=== PATIENT | male | born 1985 | race Caucasian/White ===

== ENCOUNTER 2021-02-12 05:29 | Emergency (ER) | payer OTHER ==
[2021-02-12 05:42] VITALS: BP 106/67; PULSE 107; RESP 18; TEMP 98.6
[2021-02-12] MEDS ORDERED: PENICILLIN VK 500MG STARTER 4 TAB BTL PO STA (07:17)
[2021-02-12] MEDS ORDERED: IBUPROFEN 600 MG STARTER PACK 4 TAB BTL PO STA (07:17)
--- NOTE | 2021-02-12 07:28 | ED ---
General Adult HPI - General Chief complaint: Dental/Oral Stated complaint: Dental Pain Time Seen by Provider: 02/12/21 07:01 Source: patient, RN notes reviewed Mode of arrival: ambulatory Limitations: no limitations - History of Present Illness Initial comments: 35-year-old male presents to the emergency room for dental pain. Patient has had left lower dental pain for the past 2 days. Patient states he always comes here and get penicillin and it goes away within the first 2 doses. Patient denies fevers. Patient does not have a dentist. States that he needs all of his teeth pulled. Patient denies fevers, neck stiffness, trismus.Patient has no other complaints at this time including shortness of breath, chest pain, abdominal pain, nausea or vomiting, headache, or visual changes. - Related Data Previous Rx's Medication Instructions Recorded Ibuprofen [Motrin] 600 mg PO Q6HR PRN #20 tab 02/12/21 Penicillin V Potassium [Pen Vee K] 500 mg PO Q6H 10 Days #40 tablet 02/12/21 Allergies Allergy/AdvReac Type Severity Reaction Status Date / Time root beer AdvReac Unknown Uncoded 02/12/21 05:42 Review of Systems ROS Statement: Those systems with pertinent positive or pertinent negative responses have been documented in the HPI. ROS Other: All systems not noted in ROS Statement are negative. Past Medical History Past Medical History: No Reported History History of Any Multi-Drug Resistant Organisms: None Reported Past Surgical History: Orthopedic Surgery Past Psychological History: No Psychological Hx Reported Smoking Status: Current every day smoker Past Alcohol Use History: None Reported Past Drug Use History: Marijuana General Exam Limitations: no limitations General appearance: alert, in no apparent distress Head exam: Present: atraumatic Eye exam: Present: normal appearance, PERRL, EOMI. Absent: scleral icterus, conjunctival injection ENT exam: Present: mucous membranes moist. Absent: normal oropharynx (Patient has mild edema left lower jaw. No palpable or identifiable dental abscess along the gumline. No sublingual edema.) Neck exam: Present: normal inspection, full ROM. Absent: tenderness Respiratory exam: Present: normal lung sounds bilaterally. Absent: respiratory distress, wheezes, rales Cardiovascular Exam: Present: regular rate, normal rhythm, normal heart sounds GI/Abdominal exam: Present: soft, normal bowel sounds. Absent: distended, tenderness Neurological exam: Present: alert Course Vital Signs 02/12/21 05:40 Temperature 98.6 F Pulse Rate 107 H Respiratory 18 Rate Blood Pressure 106/67 O2 Sat by Pulse 99 Oximetry Medical Decision Making - Medical Decision Making Started on penicillin. No abscess identified. Referred to dentist. He will return here for any worsening symptoms. Disposition Clinical Impression: Dental infection Disposition: HOME SELF-CARE Condition: Good Instructions (If sedation given, give patient instructions): Toothache (ED) Additional Instructions: Please follow up with primary care in 1-2 days. Return to the ER for any worsening symptoms. [facility] [address] [facility] [address] (existing clients only) New clients: [phone] 1st consult: $50 (includes XRs) Usually 30% less than private dentist for visits after. [employer] Have to pay $50 for Xrays and rest is covered [phone] Prescriptions: Ibuprofen [Motrin] 600 mg PO Q6HR PRN #20 tab PRN Reason: Pain Penicillin V Potassium [Pen Vee K] 500 mg PO Q6H 10 Days #40 tablet Is patient prescribed a controlled substance at d/c from ED?: No Referrals: Pb Higuera MD [REFERRING] - 1-2 days Time of Disposition: 07:18
== END 2021-02-12 07:33 | disposition home or self-care (01) ==
LOC: EC 05:29
DX: K04.7 Periapical abscess without sinus (principal); F17.200 Nicotine dependence, unspecified, uncomplicated; F12.90 Cannabis use, unspecified, uncomplicated
CPT/HCPCS: 99282

== ENCOUNTER 2021-08-30 05:50 | Day surgery (SDC) | payer OTHER ==
[2021-08-30] MEDS ORDERED: ONDANSETRON 4 MG/2 ML VIAL IVP ONE (06:08)
[2021-08-30] MEDS ORDERED: DEXAMETHASONE SOD PHOSPHATE 4 MG/ML 1 ML VIAL IV ONE (06:08)
[2021-08-30] MEDS ORDERED: MIDAZOLAM 2 MG/2 ML VIAL IV PRN (06:08)
[2021-08-30] MEDS ORDERED: SCOPOLAMINE 1 MG/72 HR PATCH TRANSDERM ONE (06:08)
[2021-08-30 06:24] VITALS: TEMP 97.2
[2021-08-30] MEDS: LACTATED RINGERS 1,000 ML IV SCH ×2 (06:45→07:28)
[2021-08-30] MEDS ORDERED: SUCCINYLCHOLINE CHLORIDE 100 MG/5 ML SYR IV ONE (07:25)
[2021-08-30] MEDS ORDERED: LIDOCAINE 2% INJ 20 MG/ML (2 ML VIAL) ONE (07:25)
[2021-08-30] MEDS ORDERED: KETAMINE 10 MG/ML 20 ML VIAL ONE (07:25)
[2021-08-30] MEDS ORDERED: fentaNYL (PF) 50 MCG/ML 2 ML AMP ONE (07:25)
[2021-08-30] MEDS ORDERED: PROPOFOL 10 MG/ML 20 ML VIAL IV ONE (07:25)
[2021-08-30] MEDS ORDERED: DEXAMETHASONE SOD PHOSPHATE 4 MG/ML 1 ML VIAL ONE (07:25)
[2021-08-30] MEDS ORDERED: ROPIVACAINE 5 MG/ML 30 ML VIAL ONE (07:25)
[2021-08-30] MEDS ORDERED: PHENYLEPHRINE-0.9% NACL SYG 1,000 MCG/10 ML SYRINGE ONE (07:25)
--- NOTE | 2021-08-30 07:52 | P.ANPRN ---
Procedure Note - Anesthesia - Nerve Block Performed Right Adductor Canal Single Time Out Performed: Yes Date of Procedure: 08/30/21 Procedure Start Time: 06:55 Procedure Stop Time: 07:04 Location of Patient: PreOp Indication: Acute Post-Operative Pain, Requested by Surgeon Sedation Type: Sedate with meaningful contact maintained Preparation: Sterile Prep, Sterile Dressing Position: Supine Catheter: None Needle Types: Pajunk Needle Gauge: 20 Ultrasound used to visualize needle placement: Yes Ultrasound used to observe medication spread: Yes Injectate: 0.5% Ropivacaine (see comment for volume) (15 ml + decadron 4 mg) Blood Aspirated: No Pain Paresthesia on Injection Noted: No Resistance on Injection: Normal Image Stored and Saved: Yes Events: Uneventful and Well Tolerated Right Popliteal Single Time Out Performed: Yes Date of Procedure: 08/30/21 Procedure Start Time: 07:05 Procedure Stop Time: 07:11 Location of Patient: PreOp Indication: Acute Post-Operative Pain, Requested by Surgeon Sedation Type: Sedate with meaningful contact maintained Preparation: Sterile Prep, Sterile Dressing Position: Left Lateral Catheter: None Needle Types: Pajunk Needle Gauge: 20 Ultrasound used to visualize needle placement: Yes Ultrasound used to observe medication spread: Yes Injectate: 0.5% Ropivacaine (see comment for volume) (15 ml + decadron 4 mg) Blood Aspirated: No Pain Paresthesia on Injection Noted: No Resistance on Injection: Normal Image Stored and Saved: Yes Events: Uneventful and Well Tolerated
[2021-08-30] MEDS ORDERED: LACTATED RINGERS 1,000 ML IV ONE (08:33)
--- NOTE | 2021-08-30 09:21 | XR ---
Fluoroscopy INDICATION: Pain FINDINGS: Fluoroscopy time: Not recorded Images obtained: 1. IMPRESSIONS: 1. Documentation of fluoroscopy.
--- NOTE | 2021-08-30 09:28 | FL ---
Fluoroscopy INDICATION: Pain FINDINGS: Fluoroscopy time: 57 seconds. Images obtained: 0. IMPRESSIONS: 1. Documentation of fluoroscopy.
--- NOTE | 2021-08-30 09:59 | P.OP ---
Date of Procedure: 08/30/21 Preoperative Diagnosis: 1. Displaced right bimalleolar ankle fracture 2. Disruption of right syndesmosis Postoperative Diagnosis: 1. Same 2. Same Procedure(s) Performed: 1. Open reduction with internal fixation right bimalleolar ankle fracture 2. Open repair syndesmosis right ankle Implants: Arthrex precontoured titanium lateral malleolar plate with 3.5 mm locking screws, 3.5 mm nonlocking screws, and 3.0 locking screws Arthrex tight rope Arthrex 4.0 mm cannulated screws 2 Anesthesia: ROBBINA Surgeon: Vance Joe Estimated Blood Loss (ml): 10 Pathology: none sent Condition: stable Disposition: PACU Description of Procedure: Prior to the patient being brought to the operating room, anesthesia administered nerve block on the right lower extremity. The patient was brought into the operating room and placed on the table supine position. Timeout was taken to confirm correct patient identifiers, correct site of surgery, and correct procedure. When all staff in the room were in agreement with the timeout, the patient was induced and placed under general anesthesia. A well- padded tourniquet was placed on the right thigh and a bump underneath the right hip to internally rotate the right leg. The right leg was then prepped and draped in the usual manner. The leg was exsanguinated and the tourniquet inflated to 250 mmHg. Attention was directed over the lateral aspect of the ankle where a linear incision was made over the lateral malleolus. Incision was deepened down through the subcutaneous layer careful to identify, avoid, and retract any neurovascular structures and cauterize any bleeding vessels. A full-thickness incision was made down to the lateral malleolus and the soft tissue reflected to expose the fracture. A curette was used to remove any soft tissue and hematoma between the fracture segments. And then the wound is irrigated with sterile saline. Bone reduction clamps were then used to rotate the fracture bringing back out to length and realigned. Fluoroscopy confirmed that the fracture was anatomically reduced. 3.5 mm cortical screw was then inserted from anterior to posterior and perpendicular to the fracture. The screw provided good compression across the fracture line. An Arthrex precontoured lateral malleolar plate was and positioned over the lateral malleolus. The plate did require some bending to conform to the contour of the lateral malleolus. Once that was completed the plate was temporarily fixated and adjusted under fluoroscopy until it was correctly aligned. The 3.5 locking screw was then placed through the second to most proximal hole in the plate. 3.5 mm nonlocking cortical screw was then inserted at the midportion of the plate so that would bring it into better contact with the lateral malleolus. A second 3.5 mm locking screw was placed in the most proximal hole in the plate. At that distal portion of the plate a combination of 3.0 cortical locking and nonlocking screws were placed. Drilling was done under direct fluoroscopic visualization so as not to penetrate the lateral gutter. Once all screws were in and position fluoroscopy was used to make sure that the overlap alignment of the fracture was acceptable and that there were no distal screws in the lateral gutter. Once fixation was in place fluoroscopic imaging showed anatomic alignment and restored length of the lateral malleolus. Then attention was directed to the medial aspect ankle were curved incision was made over the medial malleolus. It was deepened down to the subcutaneous tissue careful to identify, avoid, and retract any neurovascular structures and cauterize any bleeding vessels. The periosteum was incised and reflected anteriorly and posteriorly to expose the fracture. All soft tissue and hematoma were evacuated from between the fracture segments. Then the wound is irrigated with sterile saline. Bone reduction clamp was then used to place the fracture into its proper alignment. And then under fluoroscopic visualization guidewires for 4.0 cannulated screws were inserted at the tip of medial malleolus and angled superiorly and posteriorly so that they were perpendicular to the fracture line. Fluoroscopy showed that the wire placement was correct both on AP and lateral views. Overdrill it was completed just to the fracture line. Then 4.0 partially threaded cannulated screws were inserted across the guidewires and advanced until the heads contacted the medial malleolus and compressed the fracture line. Fluoroscopic imaging confirmed proper placement of the screws both on AP and lateral views. The wires were removed. And then attention was directed back to the lateral aspect ankle for the placement of the tight rope. The hole was chosen in the plate for the placement of the tight rope was proximal to the ankle joint. The drill hole is made straight lateral to medial with anterior angulation until it exited the medial cortex of the tibia. The tight rope was inserted and the button advanced until a clear the medial cortex of the tibia. And then the button was deployed and laid flat against the cortex of the tibia. At that point the infrastructure security architect was removed and then the lateral button was tightened onto the plate with the reduction clamp in place across the syndesmosis and ankle maximally dorsiflexed. Once it was fully tightened the clamp was removed and then stress radiography was performed which showed no gapping of the medial gutter or excessive movement of the syndesmosis. With fixation complete, all wounds were thoroughly irrigated with sterile saline. Deep closure on the lateral malleolar incision was done with 2-0 Vicryl. Subcutaneous closure of both incisions was closed with 3-0 Vicryl. And skin closure done with didi An Arthrex jumpstart dressing was placed over both the medial and lateral incisions. Then a bulky dry dressings applied to the right foot and ankle. The tourniquet was released and capillary refill return to all digits on the foot. Then the patient was placed in a well-padded, well molded plaster posterior mold/sugar tong splint. Ankle was held in neutral position as the splint dried. Once the splint was dried anesthesia was reversed and the patient was taken recovery with vital signs stable.
[2021-08-30] MEDS: HYDROmorphone 0.5 MG/0.5 ML SYRINGE IVP PRN ×2 (10:00→10:15)
[2021-08-30 11:54] VITALS: BP 104/65; PULSE 72; RESP 16
== END 2021-08-30 12:04 | disposition home or self-care (01) ==
LOC: OR 05:50
PROVIDERS: ATTEND Podiatrist
DX: S82.841A Displaced bimalleolar fracture of right lower leg, initial encounter for closed fracture (principal); S93.431A Sprain of tibiofibular ligament of right ankle, initial encounter; V18.4XXA Pedal cycle driver injured in noncollision transport accident in traffic accident, initial encounter; F17.200 Nicotine dependence, unspecified, uncomplicated; Z79.1 Long term (current) use of non-steroidal anti-inflammatories (NSAID); Z79.891 Long term (current) use of opiate analgesic; Z98.890 Other specified postprocedural states
CPT/HCPCS: 64447; 64999; 76942; 73610; 27814; 27829; C1713; J2250; J1100; J0690; J2405; J3010; J2795; J2370; J0330; J2704; J1170; J2001

== ENCOUNTER 2021-12-05 23:37 | Inpatient (IN) | payer MEDICAID, OTHER ==
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
[2021-12-06 06:07] LABS: Amphetamine Screen,Urine Detected (NotDetected); Barbiturate Screen,Urine Not Detected (NotDetected); Benzodiazepines Screen,Urine Not Detected (NotDetected); Cocaine Screen,Urine Not Detected (NotDetected); Methadone Screen, Urine Not Detected (NotDetected); Opiate Screen,Urine Not Detected (NotDetected); Oxycodone Screen, Urine Not Detected (NotDetected); Phencyclidine Screen,Urine Not Detected (NotDetected); Tricyclic Antidepressant,Urine Not Detected (NotDetected); Urn Cannabinoid Scrn Not Detected (NotDetected)
[2021-12-06] MEDS ORDERED: MAGNESIUM HYDROXIDE 2,400 MG/10 ML CUP PO PRN (06:54)
[2021-12-06] MEDS ORDERED: MAG HYDROX/AL HYDROX/SIMETH 30 ML CUP PO PRN (06:54)
[2021-12-06] MEDS ORDERED: LORazepam 2 MG/ML INJ IM PRN (06:57)
[2021-12-06] MEDS ORDERED: HALOPERIDOL LACTATE 5 MG/ML 1 ML VIAL IM PRN (06:58)
[2021-12-06] MEDS ORDERED: haloperidoL 5 MG TAB PO PRN (06:58)
[2021-12-06] MEDS: NICOTINE 14MG/24HR PATCH TRANSDERM SCH ×2 (15:32→18:26)
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
[2021-12-06] MEDS: FLUoxetine HCL 20 MG CAP PO SCH (20:24)
[2021-12-07] MEDS: ACETAMINOPHEN TAB 325 MG TAB PO PRN ×2 (04:48→11:04)
[2021-12-07] MEDS: LORazepam 1 MG TAB PO PRN ×2 (04:48→11:00)
[2021-12-07] MEDS: FLUoxetine HCL 20 MG CAP PO SCH (10:59)
[2021-12-07] MEDS: NICOTINE 14MG/24HR PATCH TRANSDERM SCH (10:59)
[2021-12-07 11:26] LABS: Basophils # (A) 0.1 k/uL (0-0.2); Basophils % (A) 2 %; Eosinophils # (A) 0.2 k/uL (0-0.7); Eosinophils % (A) 3 %; HGB 15.8 gm/dL (13.0-17.5); Lymphocytes # (A) 1.1 k/uL (1.0-4.8); Lymphocytes % (A) 22 %; MCH 30.4 pg (25.0-35.0); MCHC 31.7 g/dL (31.0-37.0); Mean Platelet Volume 6.5; Monocytes # (A) 0.4 k/uL (0-1.0); Monocytes % (A) 8 %; Neutrophils # (A) 3.3 k/uL (1.3-7.7); Neutrophils % (A) 64 %; Platelet Count 346 k/uL (150-450); RBC 5.21 m/uL (4.30-5.90); RDW 13.7 % (11.5-15.5); WBC 5.2 k/uL (3.8-10.6)
[2021-12-07 11:34] LABS: ALT 16 U/L (4-49); AST 23 U/L (17-59); African American GFR (CKD) >90 (>60 ml/min/1.73 sqM); Albumin 4.1 g/dL (3.5-5.0); Alkaline Phosphatase 67 U/L (38-126); Anion Gap 9 mmol/L; Blood Urea Nitrogen 13 mg/dL (9-20); Carbon Dioxide 28 mmol/L (22-30); Chloride 100 mmol/L (98-107); Glucose 101 mg/dL (74-99); Non-African American GFR(CKD) >90 (>60 ml/min/1.73 sqM); Potassium 4.5 mmol/L (3.5-5.1); Sodium 137 mmol/L (137-145); Total Bilirubin 0.3 mg/dL (0.2-1.3); Total Protein 6.4 g/dL (6.3-8.2)
--- NOTE | 2021-12-07 16:19 | P.PN ---
Progress Note - Text Progress Note Date: 12/07/21 Interval history: Patient was seen asleep in bed and superficially cooperative on awakening. He appears withdrawn and isolates to his room, with irritable edge. He has not attended any groups so far today despite being prompted by staff, he refuses to attend. At this time, patient denies any suicidal or homicidal ideation, intent or plan. Denies any auditory or visual hallucinations. Patient denies any side effects from the medications and has been compliant with meds. Mental status exam: General Appearance: Patient appears to be stated age, poor hygiene and grooming, long messy hair. Behavior: Patient is laying without any agitated behavior, remains guarded and withdrawn. Speech: Patient's speech is fluent and non-pressured. Mood/Affect: Patient reports their mood is "fine", affect is incongruent and constricted. Suicidality/Homicidality: Patient denies having any homicidal ideation intent or plan. He denies any suicidal ideations, intent or plan. Perceptions: Patient denies any visual hallucinations and denies any auditory hallucinations. Though content/process: There is no evidence of any delusional thought content and thought process is linear and goal-directed. Memory and concentration: AOX3, grossly intact for the purposes of this session. Can spell "WORLD" backwards Judgment and insight: poor Assessment/Plan: Continue with current diagnosis. Patient continues to meet criteria for inpatient psychiatric admission for symptom stabilization and safety. Patient will be maintained on current psychotropic medication regimen. Continue Prozac 20 mg daily for now, with plan to increase to 40 mg daily as tolerated for depression/anxiety. Consider starting Trileptal for mood lability/agitation. Monitor for medication compliance and for any psychotropic medication side effects. Will continue to monitor ongoing response to treatment. Encouraged participation in milieu.
[2021-12-07 20:06] LABS: Appearance,Urine Cloudy (Clear); Bilirubin,Urine Negative (Negative); Blood,Urine Negative (Negative); Calcium Oxalate Crystals,Urine Occasional /hpf; Color,Urine Yellow; Glucose,Urine (UA) Negative (Negative); Hyaline Casts,Urine 1 /lpf (0-2); Ketones,Urine Negative (Negative); Leukocyte Esterase,Urine Negative (Negative); Mucus,Urine Occasional /hpf; Nitrite,Urine Negative (Negative); PH, Urine 6.5 (5.0-8.0); Protein,Urine Negative (Negative); RBC,Urine 1 /hpf (0-5); Specific Gravity,Urine 1.024 (1.001-1.035); Urobilinogen,Urine <2.0 mg/dL (<2.0); WBC,Urine 1 /hpf (0-5)
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
[2021-12-08 06:53] VITALS: RESP 16
[2021-12-08] MEDS: NICOTINE 14MG/24HR PATCH TRANSDERM SCH (08:51)
[2021-12-08] MEDS: FLUoxetine HCL 20 MG CAP PO SCH (08:51)
[2021-12-08] MEDS: ACETAMINOPHEN TAB 325 MG TAB PO PRN (08:52)
[2021-12-08] MEDS: LORazepam 1 MG TAB PO PRN ×2 (14:06→20:33)
--- NOTE | 2021-12-08 15:04 | P.PN ---
Progress Note - Text Progress Note Date: 12/08/21 Interval history: Patient was laying in bed resting and is superficially cooperative on awakening. He continues to appear withdrawn, isolates to his room, with irritable edge and has been refusing to attend groups despite prompting from staff. He states he just wants to go home. He reports poor sleep last night, but was reminded he was in bed asleep most of the day. We reviewed sleep hygiene. At this time, patient denies any suicidal or homicidal ideation, intent or plan. Denies any auditory or visual hallucinations. Patient denies any side effects from the medications and has been compliant with meds. Mental status exam: General Appearance: Patient appears to be stated age, fair hygiene and grooming, long hair. Behavior: Patient is laying without any agitated behavior, remains guarded and withdrawn. Speech: Patient's speech is fluent and non-pressured. Mood/Affect: Patient reports their mood is "fine", affect is incongruent and constricted. Suicidality/Homicidality: Patient denies having any homicidal ideation intent or plan. He denies any suicidal ideation, intent or plan. Perceptions: Patient denies any visual hallucinations and denies any auditory hallucinations. Though content/process: There is no evidence of any delusional thought content and thought process is linear and goal-directed. Memory and concentration: AOX3, grossly intact for the purposes of this session. Judgment and insight: Poor Assessment/Plan: Continue with current diagnosis. Patient continues to meet criteria for inpatient psychiatric admission for symptom stabilization and safety. Increase Prozac to 40 mg daily for depression/anxiety. Consider adding Trileptal for mood lability/agitation. Reviewed sleep hygiene. Encouraged participation in milieu. Monitor for medication compliance and for any psychotropic medication side effects. Will continue to monitor ongoing response to treatment.
[2021-12-09] MEDS: NICOTINE 14MG/24HR PATCH TRANSDERM SCH (08:57)
[2021-12-09] MEDS ORDERED: FLUoxetine HCL 20 MG CAP PO SCH (09:00)
[2021-12-09] MEDS: LORazepam 1 MG TAB PO PRN ×2 (12:11→18:33)
[2021-12-10 06:33] VITALS: TEMP 97.7
[2021-12-10] MEDS: NICOTINE 14MG/24HR PATCH TRANSDERM SCH (09:21)
--- NOTE | 2021-12-10 11:05 | P.PN ---
Progress Note - Text Progress Note Date: 12/10/21 S&O: Patient was seen in rounds. He is calm and cooperative. No behavioral issues in the unit. However he had an argument with his mother over the phone last evening. He is not planning on staying with his mother and is planning on staying with his friend who is a occupational health and safety manager. He is not on any medications. His condition was discussed in the treatment team meeting and it was agreed to discharge him with outpatient counseling. Patient was counseled about this and he agreed with the plan. Plan: Discharge to live with this friend with outpatient counseling.
--- NOTE | 2021-12-10 11:18 | P.DS ---
Providers Date of admission: 12/06/21 06:53 Expected date of discharge: 12/10/21 Attending physician: Sae Black MD Consults: 12/06/21 06:54 Consult Physician Routine Consulting Provider: Matthew Chen Consult Reason/Comments: H&P Do you want consulting provider notified?: Yes Primary care physician: [facility] Course: Patient had her psychiatric H&P done by on 12/06/2021 and physical examination on 12/07/[address] Uribe. He was started on Prozac by Dr. Alegre and it was increased to 40 mg a day. Patient said he did not see any difference while on Prozac as expected. However he did not provide any history suggestive of depression to be treated with antidepressants. His problems appear to be related to his disagreements and interim personal relationship problem with his mother and grandmother. He was counseled about it and he agreed to stop taking Prozac. He did not have any behavioral issues except for an argument over the phone with his mother on 12/09/2021 evening. He has agreed to get outpatient counseling to manage his anger issues and coping skills. This was discussed with the treatment team members and it was agreed to discharge him. Patient Condition at Discharge: Fair Plan - Discharge Summary Discharge Rx Participant: No New Discharge Prescriptions: No Action Naproxen [Naprosyn] 500 mg PO Q12HR PRN PRN Reason: Pain Discharge Medication List Naproxen [Naprosyn] 500 mg PO Q12HR PRN 08/28/21 [History] Follow up Appointment(s)/Referral(s): Constance Salmeron [Primary Care Provider] - 1-2 days Activity/Diet/Wound Care/Special Instructions: Avoid the use of street drugs and alcohol. Take all prescriptions as prescribed. When you are in need of refills on your medications, please contact your medical provider and/or outpatient psychiatrist to have this done. Please go to scheduled outpatient appointment for aftercare treatment. If symptoms return or become worse, call the crisis line at and/or go to the nearest emergency room for evaluation. Discharge Disposition: HOME SELF-CARE
[2021-12-10] MEDS: LORazepam 1 MG TAB PO PRN (11:28)
[2021-12-10 11:29] VITALS: BP 110/67; PULSE 108
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
== END 2021-12-10 12:31 | disposition home or self-care (01) | DRG 881 ==
LOC: EC 23:37 → 3MHU 12-06 06:53
PROVIDERS: ADMIT Psychiatry & Neurology Psychiatry; ATTEND Psychiatry & Neurology Psychiatry
DX: F32.A Depression, unspecified (principal); R45.851 Suicidal ideations; F12.90 Cannabis use, unspecified, uncomplicated; F15.90 Other stimulant use, unspecified, uncomplicated; F17.210 Nicotine dependence, cigarettes, uncomplicated; F41.9 Anxiety disorder, unspecified; F43.25 Adjustment disorder with mixed disturbance of emotions and conduct; Z79.899 Other long term (current) drug therapy; Z20.822 Contact with and (suspected) exposure to COVID-19
CPT/HCPCS: 80053; 80306; 81001; 82075; 83036; 84443; 85025; 87635; 99285

== ENCOUNTER 2021-12-25 12:27 | Day surgery (SDC) | payer OTHER ==
[2021-12-23 12:13] VITALS: BMI 24.7
[~2021-12-25 12:27] MED LIST: DEXAMETHASONE SOD PHOSPHATE 4 MG/ML 1 ML VIAL IV ONE; HYDROmorphone 0.5 MG/0.5 ML SYRINGE IVP PRN; LACTATED RINGERS 1,000 ML IV SCH; LIDOCAINE 1% (10MG/ML) FOR IV START INTRADERMA PRN; MIDAZOLAM 2 MG/2 ML VIAL IV PRN; ONDANSETRON 4 MG/2 ML VIAL IVP ONE
[2021-12-25 13:11] VITALS: TEMP 98.6
[2021-12-25] MEDS ORDERED: PHENYLEPHRINE-0.9% NACL SYG 1,000 MCG/10 ML SYRINGE ONE (13:29)
[2021-12-25] MEDS ORDERED: PROPOFOL 10 MG/ML 20 ML VIAL IV ONE (13:29)
[2021-12-25] MEDS ORDERED: MIDAZOLAM 2 MG/2 ML VIAL ONE (13:29)
[2021-12-25] MEDS ORDERED: LIDOCAINE 2% INJ 20 MG/ML (2 ML VIAL) ONE (13:29)
[2021-12-25] MEDS ORDERED: fentaNYL (PF) 50 MCG/ML 2 ML AMP ONE (13:29)
[2021-12-25] MEDS ORDERED: BUPIVACAINE (PF) 0.25% 30 ML VIAL SQ ONE (13:40)
[2021-12-25] MEDS ORDERED: LACTATED RINGERS 1,000 ML IV ONE (14:52)
--- NOTE | 2021-12-25 15:18 | FL ---
EXAMINATION TYPE: FL guidance operating room, XR ankle limited RT DATE OF EXAM: 12/25/2021 CLINICAL HISTORY: Right ankle fracture TECHNIQUE: Fluoroscopy. Intraoperative limited views right ankle. COMPARISON: Prior ankle x-ray study August 30, 2021. FINDINGS: Fluoroscopic guidance was provided during open reduction internal fixation procedure perfo rmed by Dr. Joe. A total of 30 seconds of fluoroscopic time was utilized during the procedure and 7 spot images was acquired. Intraoperative images obtained show interval removal of 2 fixating screws at level of the medial mall eolus with placement of a medial fixating plate having 3 more proximal fixating screws and one distal obliquely oriented fixating screw. Lateral fixating plate through the lateral malleolus and distal f ibula remains present. IMPRESSION: As Above.
--- NOTE | 2021-12-25 15:22 | P.OP ---
Date of Procedure: 12/25/21 Preoperative Diagnosis: Nonunion medial malleolar fracture right ankle Postoperative Diagnosis: Same Procedure(s) Performed: open reduction with internal fixation right medial malleolar fracture Implants: Arthrex medial malleolar hook plate with associated screws Arthrex ArthroCell Anesthesia: NAN Surgeon: Vance Joe Estimated Blood Loss (ml): 5 Pathology: none sent Condition: stable Disposition: PACU Description of Procedure: The patient was brought into the operating room and placed on table supine position. Timeout was taken to confirm correct patient identifiers, correct laterality of surgery, and correct procedure. Once the staff in the room were in agreement with the timeout, the patient was induced and placed under general anesthesia. A well-padded tourniquet was placed on the right calf. Then 19 mL of 0.25% Marcaine was injected as an infiltrative block along the medial malleolus proximal to the surgical site. The right leg was then prepped and draped usual manner. The leg was exsanguinated and the tourniquet inflated to 250 motors mercury. Attention was directed over the medial malleolus where the previous surgical incision was used as the outline for the incision. The incision was deepened down to the subcutaneous tissue, careful to identify, avoid, and retract any neurovascular structures and cauterize any bleeding vessels. Sharp dissection was continued down to the periosteum which was then reflected medially and laterally. Small incision was made at the superficial fibers of the deltoid and medial malleolus to expose the 2 previous screws. Bone was going around the screws that was removed. Both screws were engaged reversed and removed intact and without complication. Next the nonunion site was identified and incised. The nonunion site was opened and utilizing accommodation of curettes and osteotomes, the fibrous tissue between the fracture fragments was completely removed down to expose bleeding bone. There is then thoroughly irrigated with antibiotic saline. Arthrex are for cell, whic h was being mixed on the back table, was then placed between the fracture fragments. Reduction clamp was used to completely reduced fracture. Fluoroscopy showed that the fracture was completely reduced. Then an Arthrex medial malleolar hook plate was positioned over the medial malleolus and then impacted into the tip of the medial malleolus. Fluoroscopy confirmed proper placement of the plate both on AP, oblique and lateral views. Next a 4.0 cancellous screw was inserted and the slot between the hooks and advanced into the tibia. Screw allow the fracture remained reduced and further compress the plate out of the bone. Next a 3.5 mm nonlocking screw was inserted the compression slot on the proximal aspect of the plate. The drilling was done acentrically and then the screw advanced which further compress the plate. The next was the most proximal screw which was another nonlocking screw to further press the plate against the tibia. The last screw was laced centrally between the 2 nonlocking screws and the screw was a locking screw. Final fluoroscopic imaging showed anatomic reduction of the fracture. Hardware is properly positioned both on AP, oblique, and lateral views. The wound is thoroughly irrigated with anatomic saline. Subcu closure done with 3-0 Monocryl. Skin closure done with didi. An Arthrex jumpstart dressing was placed over the incision. A bulky dry dressings applied to the right ankle. Tourniquet was released capillary refill return to all digits on the right foot. Patient is a placed in a well-padded, well molded plaster posterior mold/sugar tong splint. Ankle was held in neutral position as splint dried. The patient tolerated above procedure and anesthesia well which recovery with vital signs stable.
[2021-12-25] MEDS ORDERED: HYDROcodone/APAP 7.5-325MG 1 EACH TAB PO ONE (15:56)
[2021-12-25] MEDS ORDERED: HYDROcodone/APAP 7.5-325MG 1 EACH TAB ONE (15:56)
[2021-12-25 16:06] VITALS: BP 106/71; PULSE 89; RESP 16
== END 2021-12-25 16:34 | disposition home or self-care (01) ==
LOC: OR 12:27
PROVIDERS: ATTEND Podiatrist
DX: S82.51XK Displaced fracture of medial malleolus of right tibia, subsequent encounter for closed fracture with nonunion (principal); X58.XXXD Exposure to other specified factors, subsequent encounter; F17.210 Nicotine dependence, cigarettes, uncomplicated; Z98.890 Other specified postprocedural states
CPT/HCPCS: 73600; 27720; C1713; J2250; J1100; J0690; J2405; J3010; J2370; J2704; J2001

== ENCOUNTER 2023-11-03 14:39 | Emergency (ER) | payer OTHER ==
[2023-11-03] MEDS ORDERED: CLINDAMYCIN 150 MG CAP ONE (18:55)
== END 2023-11-03 19:01 | disposition home or self-care (01) ==
LOC: EC 14:39
DX: L03.115 Cellulitis of right lower limb (principal)
CPT/HCPCS: 80053; 83605; 85025; 99283